=== PATIENT | female | born 1985 | race Two or more races ===

== ENCOUNTER 2025-07-20 08:33 | Emergency (ER) | payer MEDICAID, SELFPAY ==
[2025-07-20 08:54] VITALS: BP 143/91; PULSE 67; RESP 20; TEMP 36.7; O2SAT 99; BMI 37.5
--- NOTE | 2025-07-20 09:08 | XR_ITS ---
Examination: Complete OB ultrasound, less than 14 weeks, transabdominal Date and time of exam: July 20, 2025, 0922 hours INDICATIONS: Positive home test 6 weeks ago with vaginal bleeding and cramping onset today Technique: Obstetrical ultrasound images less than 14 weeks performed via transabdominal imaging Findings: Uterus 8.0 cm, no uterine mass or intrauterine gestation. Endometrial stripe 1.1 cm Right ovary 3.3 cm arterial flow. Left ovary 4.1 cm arterial flow IMPRESSION: No intrauterine gestation or uterine mass. .
--- NOTE | 2025-07-20 09:13 | PD.EDRME ---
Rapid Medical Screening Exam E Arrival date/time: 07/20/25 08:33 This is a 40-year-old female that comes into the emergency room with complaints of vaginal bleeding. Patient is a 6 para 5. Patient states her last menstrual period was May 16. Patient reports that she has not seen a doctor since she found out she was . Patient reports that she started having heavy vaginal bleeding and back pain. Patient reports history of high blood pressure, diabetes, and hyperlipidemia. I have greeted and performed a focused initial assessment of this patient. Initial appropriate labs ordered at this time. A comprehensive ED assessment and evaluation of the patient and analysis of all test and completion of medical decision making process will be conducted by additional ED provider. Chief Complaint: Vaginal Bleeding Time Seen by Provider: 07/20/25 08:40 Vital signs: Vital Signs Temperature 98.0 F 07/20/25 08:54 Pulse Rate 67 07/20/25 08:54 Respiratory Rate 20 07/20/25 08:54 Blood Pressure 143/91 H 07/20/25 08:54 Pulse Oximetry (%) 99 07/20/25 08:54 Oxygen Delivery Method Room Air 07/20/25 08:54 Exam: Alert oriented in no acute distress. Clinical Impression: Vaginal bleeding
[2025-07-20 09:35] LABS: Collection Type, Urine Voided
[2025-07-20 09:42] LABS: Bilirubin,Urine Negative (Negative); Blood,Urine 3+ (Negative); Clarity,Urine Clear (Clear/Hazy); Color,Urine Yellow (Lt Yel-Yel); Culture Indicated,Urine Not Indicated; Glucose, Urine 1+ (Negative); Ketones,Urine Negative (Negative); Leukocyte Esterase,Urine Negative (Negative); Nitrite,Urine Negative (Negative); PH,Urine 6.0 (5.0-7.0); Protein,Urine Trace (Neg - Trace); RBC,Urine 5 /hpf (0-3); Specific Gravity,Urine 1.029 (1.001-1.035); Squamous Epithelial Cell,Urine 2 /hpf (0-5); Urobilinogen,Urine Negative mg/dL (0.0-1.0); WBC,Urine 2 /hpf (0-5)
[2025-07-20 09:54] LABS: Basophils # (Auto) 0.0 Thou/mm3 (0.0-0.2); Basophils % (Auto) 0 % (0-2.5); Eosinophils # (Auto) 0.0 Thou/mm3 (0.0-0.5); Eosinophils % (Auto) 0 % (0-10); Hematocrit 41.1 % (36.0-46.0); Hemoglobin 13.8 g/dL (12.0-16.0); Immature Granulocytes Auto 0.03 Thou/mm3 (0.00-0.00); Lymphocytes # (Auto) 2.4 Thou/mm3 (1.0-4.8); Lymphocytes % (Auto) 25 % (10-50); Mean Corpuscular HGB Conc 33.6 g/dl (31.0-37.0); Mean Corpuscular Hemoglobin 29.8 pg (25.0-35.0); Mean Corpuscular Volume 89 fL (80-100); Monocytes # (Auto) 0.6 Thou/mm3 (0.0-0.8); Monocytes % (Auto) 7 % (0-12); Neutrophils # (Auto) 6.4 Thou/mm3 (1.8-7.7); Neutrophils % (Auto) 68 % (37-80); Nucleated Red Blood Cell # 0.00 Thou/mm3 (0.00-0.00); Nucleated Red Blood Cell % 0 /100 WBC (0); Platelet Count 272 Thou/mm3 (140-440); RDW Standard Deviation 37.8 fL (36.4-46.3); Red Blood Count 4.63 Miln/mm3 (4.00-5.20); White Blood Count 9.4 Thou/mm3 (3.6-11.0)
[2025-07-20 10:34] LABS: Alanine Aminotransferase 19 U/L (10-49); Albumin, Serum 4.5 gm/dL (3.5-5.0); Albumin/Globulin Ratio 2.0 (1.2-2.2); Alkaline Phosphatase 79 U/L (46-116); Anion Gap 9 (7-16); Aspartate Amino Transferase 16 U/L (0-34); BUN/Creatinine Ratio 13 Ratio (12-20); Beta HCG,Quantitative < 1 mIU/mL (<5.0); Bilirubin,Total 1.2 mg/dL (0.3-1.2); Blood Urea Nitrogen 10 mg/dL (9-23); Calcium 9.0 mg/dL (8.3-10.6); Calcium (Corrected) 9.0 mg/dL (8.5-10.1); Carbon Dioxide 24.6 mMol/L (20.0-31.0); Chloride 105 mMol/L (98-107); Creatinine (Component) 0.8 mg/dL (0.6-1.3); Estimated Creatinine Clearance 97.4 mL/min (>60); Globulin 2.2 gm/dL (2.3-3.5); Glucose 249 mg/dL (74-106); Osmolality,Calculated 284 (275-295); Potassium 4.0 mMol/L (3.4-5.1); Sodium 139 mMol/L (136-145); Total Protein 6.7 gm/dL (5.7-8.2); eGFR > 60 See Note
--- NOTE | 2025-07-20 10:50 | EDNOTE_ITS ---
ED OB Contraction Preg RMI/HPI General Chief complaint: Vaginal Bleeding Stated complaint: VAGINAL BLEEDING, CRAMPING, PREG 6WKS Time Seen by Provider: 07/20/25 08:40 Arrival date/time: 07/20/25 08:33 RME / HPI RME / HPI Narrative: 07/20/25 08:33 This is a 40-year-old female that comes into the emergency room with complaints of vaginal bleeding. Patient is a 6 para 5. Patient states her last menstrual period was May 16. Patient reports that she has not seen a doctor since she found out she was . Patient reports that she started having heavy vaginal bleeding and back pain. Patient reports history of high blood pressure, diabetes, and hyperlipidemia. I have greeted and performed a focused initial assessment of this patient. Initial appropriate labs ordered at this time. A comprehensive ED assessment a nd evaluation of the patient and analysis of all test and completion of medical decision making process will be conducted by additional ED provider. DR. JERRY MAIN ED EVALUATION: 40-year-old female with a history of type 2 diabetes and 2 prior sections presents to the Emergency Department accompanied by her mother for evaluation of vaginal bleeding. The patient reports that three 3 ago she tested positive on a test and has not had a menstrual period for May or June. Today, she noticed vaginal bleeding, which prompted her visit. She terry es abdominal pain, dizziness, syncope, nausea, vomiting, or other symptoms. The patient believed she had undergone a tubal ligation during her last section in 2018, but there is no documentation confirming a tubal procedure. Related Data Home Medications ?Medication ?Instructions ?Recorded ?Confirmed metformin 500 mg tablet 500 mg PO QDAY 11/22/2110/27 Previous Rx's ?Medication ?Instructions ?Recorded metformin 500 mg tablet 500 mg PO BID #60 tabs 11/22 sulfamethoxazole 800 1 tab PO BID #20 tabs mg-trimethoprim 160 mg tablet (Bactrim DS) albuterol sulfate 90 mcg/actuation 2 puff inhalation Q 6H PRN 07/31/23 aerosol inhaler (Ventolin HFA) shortness of breath or wheezing #8.5 grams diphenhydramine HCl 25 mg capsule 25 mg PO TID PRN cou gh #30 caps 07/31/23 (Allergy (diphenhydramine)) ondansetron 4 mg disintegrating 4 mg PO Q8H PRN nausea and 07/31/23 tablet vomiting #20 tabs Allergies Allergy/AdvReac Type Severity Reaction Status Date / Time No Known Allergies Allergy Verified 07/20/25 08:36 Review of Systems Review of Systems Systems Reviewed: All systems reviewed, normal except as documented Past Medical History Past Medical History NEUROLOGIC: Positive Neurological Disorders and Seizures CARDIAC: Positive Hypertension REPRODUCTIVE: Positive Previous Pregnancies ENDOCRINE: Positive Endocrine Disorders and Diabetes Mellitus Type 2 OTHER HISTORY: Positive Hospitalization and Chicken Pox Family History FAMILY HISTORY: Positive Family Cancer Surgical History SURGICAL: Positive Section Social History SMOKING STATUS: Never smoker SECOND HAND EXPOSURE: No SUBSTANCE USE: does not use ALCOHOL: Never ED Exam Narrative Physical exam: GENERAL APPEARANCE: alert and oriented x 4, well-developed, well-nourished, no acute distress VITALS: All vitals were reviewed and the pulse ox is 99% on room air, which is normal according to my interpretation. HEENT: Normocephalic, atraumatic; pupils equal, round, reactive to light; EOMI; mucous membranes pink, moist; oropharynx clear NECK: Supple LUNGS: CTABL; no wheezes, no rales, no rhonchi HEART: Regular rate, regular rhythm; normal S1, S2; no murmurs ABDOMEN: non distended; normal BS; soft, no tenderness, no guarding, no rebound; no masses, no organomegaly, no hernia BACK: no CVA tenderness EXTREMITIES: atraumatic; no edema NEUROLOGIC: awake; alert and oriented x4; cranial nerves II-XII grossly intact; no focal sensory or motor deficits PSYCHIATRIC: appropriate mood and affect SKIN: warm, dry, normal color; no rashes Course Quality Measures none Orders Category Date Time Status US OB <= 14 weeks fetus Stat Exams 07/20/25 09:08 Completed ABO/RH Type - Stat Lab 07/20/25 09:40 Received Beta HCG,Quantitative Stat Lab 07/20/25 09:40 Completed CBC Stat Lab 07/20/25 09:40 Completed Comprehensive Metabolic Panel Stat Lab 07/20/25 09:40 Completed Urinalysis, C/S if Indicated Stat Lab 07/20/25 09:27 Completed Vital Signs Vital signs: Vital Signs Temperature 98.0 F 07/20/25 08:54 Pulse Rate 67 07/20/25 08:54 Respiratory Rate 20 07/20/25 08:54 Blood Pressure 143/91 H 07/20/25 08:54 Pulse Oximetry (%) 99 07/20/25 08:54 Oxygen Delivery Method Room Air 07/20/25 08:54 Vaginal Bleeding MDM Narrative MDM Narrative: Teofilo, Candacewilner Last am scribing for and in the presence of Dr. Jerry. Patient data External records reviewed:: [facility] previous records Clinical information provided by:: patient Social determinants that could affect healthcare access:: none Patient has the following chronic illnesses:: type 2 diabetes and 2 prior sections How is presenting disease/condition affected by chronic disease/condition?: uneffected by Evaluation data The following diagnostics were reviewed and interpreted by me:: lab results and radiology exam(s) Lab and/or radiology exams considered but not ordered:: none Interpretation Summary: Procedure(s): US OB <= 14 weeks fetus Accession Number(s): [id number] cc: Young Jensen MD; NO PRIMARY/FAMILY,PHYSICIAN; Jacy Chappell NP~ Examination: Complete OB ultrasound, less than 14 weeks, transabdominal Date and time of exam: July 20, 2025, 0922 hours INDICATIONS: Positive home test 6 weeks ago with vaginal bleeding and cramping onset today Technique: Obstetrical ultrasound images less than 14 weeks performed via transabdominal imaging Findings: Uterus 8.0 cm, no uterine mass or intrauterine gestation. Endometrial stripe 1.1 cm Right ovary 3.3 cm arterial flow. Left ovary 4.1 cm arterial flow IMPRESSION: No intrauterine gestation or uterine mass. . Dictated By: Young Jensen MD Medications / Prescriptions Medications or Prescriptions considered but not ordered:: none Medication administrations:: none Consultations Consultation(s) initiated? (list below): No Diagnosis Vaginal Bleeding Differential Diagnosis: other (Early intrauterine , threatened miscarriage, and ectopic .) Most likely diagnosis given after review of the tests above:: Vaginal bleeding Hyperglycemia Admission Indicated Admission indicated?: not indicated Admission Request Was there a request for admission?: No Disposition Plan Disposition Plan: Discharge Discharge Attestation Discharge Attestation: The patient and all family members were given an opportunity to ask questions and understood the discharge instructions. Discharge instructions specifically effects, indications for sooner follow up or return to the emergency department, and the expected course of current diagnosis. Patient condition: Stable Discharge Plan Plan Patient Disposition: HOME (Self Care) Prescriptions/Referrals Prescriptions/Med Rec: No Action metformin 500 mg Tablet 500 mg PO QDAY Rx Instructions: SUGAR WAS HIGH. SAID FRIEND GAVE HER METFORMIN TO TRY AND LOWER SUGAR LEVELS. DOES NOT TAKE METFORMIN REGULARLY. metformin 500 mg tablet 500 mg PO BID Qty: 60 0RF sulfamethoxazole-trimethoprim [Bactrim DS] 800-160 mg tablet 1 tab PO BID Qty: 20 0RF ondansetron 4 mg tablet,disintegrating 4 mg PO Q8H PRN (Reason: nausea and vomiting) Qty: 20 0RF diphenhydramine HCl [Allergy (diphenhydramine)] 25 mg capsule 25 mg PO TID PRN (Reason: cough) Qty: 30 0RF albuterol sulfate [Ventolin HFA] 90 mcg/actuation HFA aerosol inhaler 2 puff inhalation Q6H PRN (Reason: shortness of breath or wheezing) Qty: 8.5 0RF Rx Instructions: w/ education Referrals: No Primary/Family,Physician [Primary Care Provider] - In 1 week Problem List Clinical Impression: Vaginal bleeding, Hyperglycemia Patient/Caregiver Discharge Instructions Education Materials: Normal Menstrual Cycle Print Language: Romanian Stand Alone Forms: Katty Award Info., Patient Portal Info Letter
== END 2025-07-20 11:18 | disposition home or self-care (01) ==
PROVIDERS: Nurse Practitioner Family; Emergency Provider Emergency Medicine
DX: O20.9 Hemorrhage in early pregnancy, unspecified (principal); O09.521 Supervision of elderly multigravida, first trimester; O24.111 Pre-existing type 2 diabetes mellitus, in pregnancy, first trimester; O34.211 Maternal care for low transverse scar from previous cesarean delivery; O99.281 Endocrine, nutritional and metabolic diseases complicating pregnancy, first trimester; E11.65 Type 2 diabetes mellitus with hyperglycemia; Z3A.01 Less than 8 weeks gestation of pregnancy; Z79.84 Long term (current) use of oral hypoglycemic drugs
CPT/HCPCS: 36415; 76801; 80053; 81001; 84702; 85025; 86900; 86901; 99281